=== PATIENT | female | born 1975 | race African-American/Black ===

== ENCOUNTER 2017-02-06 03:40 | Emergency (ER) | payer MEDICAID ==
[~2017-02-06] VITALS: Ht 149.9 cm; Wt 54.4 kg
[~2017-02-06 03:40] MED LIST: AMBIEN5 M1 PO; AMBIEN5 MG PO; ARIMIDEX1 MG PO; CATAPRES0.1 MG PO; CATAPRES0.2 MG PO; CLOMID PO; FARESTON60 MG PO; FLEXERIL10 MG PO; IMITREX25 MG PO; LEVAQUIN500 MG PO; LIDODERM 5%1 EA TP; NEURONTIN400 MG PO; NORCO 5/325 MG1 TAB PO; PERCOCET 5/3251 TAB PO; PREMARIN0.625 MG PO; SOMA350 MG PO; TAMOXIFEN CITRA20 MG PO; ULTRAM50 MG PO; VICODIN 300 MG-1 TAB PO; VICODIN 5/500 M1 TAB PO; XANAX1 MG PO; ZOCOR40 MG PO; [UNRECOGNIZED DRUG - REMARK]; [UNRECOGNIZED DRUG - REMARK]
[2017-02-06 03:49] VITALS: BP 121/81
--- NOTE | 2017-02-06 03:52 | NUR ---
Dr. Li evaluating patient at triage
--- NOTE | 2017-02-06 03:57 | NUR ---
PT TAKEN TO BED 1
[2017-02-06] MEDS ORDERED: NACL 0.9% 1,000 ML IV SCH (04:00)
--- NOTE | 2017-02-06 04:06 | NUR ---
Dr. Li evaluating patient at bedside.
[2017-02-06] MEDS ORDERED: ALBUTEROL 0.083% 2.5 MG/3 ML NEBU INH ONE (04:20)
[2017-02-06] MEDS ORDERED: IPRATROPIUM 0.02% 0.5 MG/2.5 ML NEBU INH ONE (04:20)
--- NOTE | 2017-02-06 04:20 | NUR ---
PT OXYGEN SATURATION AT 100% ON R.A AT THIS TIME
[2017-02-06] MEDS ORDERED: KETOROLAC 30 MG/ML VIAL IVP ONE (04:35)
--- NOTE | 2017-02-06 04:39 | NUR ---
PATIENT PRESENTS TO ED WITH ABD PAIN AND SOB . PT STATES SHE HAS HAD N/V/D S/P PROLIA X2DAYS AGO ; SKIN IS PINK/WARM/DRY; AAOX4 WITH EVEN AND STEADY GAIT; LUNGS CLEAR BL; HR EVEN AND REGULAR; PT DENIES ANY FEVER, CP, OR COUGH AT THIS TIME; PATIENT STATES PAIN OF 10/10 AT THIS TIME; VSS; PATIENT POSITIONED FOR COMFORT; HOB ELEVATED; BEDRAILS UP X2; BED DOWN. ER MD MADE AWARE OF PT STATUS. AT BEDSIDE
[2017-02-06] MEDS ORDERED: HYDROmorphone 1 MG/ML AMP IVP ONE (05:30)
[2017-02-06] MEDS ORDERED: ONDANSETRON 4 MG/2 ML VIAL IVP ONE (05:30)
[2017-02-06] MEDS ORDERED: HYDROmorphone 1 MG/ML AMP ONE (05:31)
[2017-02-06] MEDS ORDERED: ONDANSETRON 4 MG/2 ML VIAL ONE (05:32)
--- NOTE | 2017-02-06 05:35 | NUR ---
PT REFUSED HHN TX , AFTER I STARTED THE HHN TX , PT TOOK THE MASK OFF AFTER 2 MIN , SHE SAID THAT THIS IS STUPID, DOES NOT NEEDED.
--- NOTE | 2017-02-06 05:56 | NUR ---
Patient discharged with v/s stable. Written and verbal after care instructions given and explained. Patient alert, oriented and verbalized understanding of instructions. Ambulatory with steady gait. All questions addressed prior to discharge. ID band removed. Patient advised to follow up with PMD. Rx of TRAMADOL AND ALBUTEROL given. Patient educated on indication of medication including possible reaction and side effects. Opportunity to ask questions provided and answered.
[2017-02-06 05:57] VITALS: BP 121/81
== END 2017-02-06 05:56 | disposition home or self-care (01) ==
LOC: MED 03:40
DX: M79.1 Myalgia (principal); G89.4 Chronic pain syndrome; R06.02 Shortness of breath; I10 Essential (primary) hypertension; Z80.3 Family history of malignant neoplasm of breast; Z88.1 Allergy status to other antibiotic agents
CPT/HCPCS: 36415; 80053; 81001; 81025; 82150; 83690; 85025; 87086; 94640; 96361; 96374; 96375; 99284; J1170; J1885; J2405; J7030; J7613; J7644

== ENCOUNTER 2020-02-08 22:54 | Inpatient (IN) | payer BC, MEDICAID ==
[~2020-02-08] VITALS: Ht 149.9 cm; Wt 56.7 kg
[~2020-02-08 22:54] MED LIST changes: -AMBIEN5 M1 PO; -AMBIEN5 MG PO; +ANAS1TAB56 PO; -ARIMIDEX1 MG PO; -CATAPRES0.1 MG PO; -CATAPRES0.2 MG PO; -CLOMID PO; -FARESTON60 MG PO; -FLEXERIL10 MG PO; +GABA400C PO; -IMITREX25 MG PO; -LEVAQUIN500 MG PO; +LID5T TP; -LIDODERM 5%1 EA TP; -NEURONTIN400 MG PO; -NORCO 5/325 MG1 TAB PO; -PERCOCET 5/3251 TAB PO; -PREMARIN0.625 MG PO; -SOMA350 MG PO; +TAMO20TA3 PO; -TAMOXIFEN CITRA20 MG PO; -ULTRAM50 MG PO; -VICODIN 300 MG-1 TAB PO; -VICODIN 5/500 M1 TAB PO; -XANAX1 MG PO; -ZOCOR40 MG PO; -[UNRECOGNIZED DRUG - REMARK]
[2020-02-08 22:55] VITALS: BP 125/78
[2020-02-09] MEDS ORDERED: HYDROcodone/APAP 5/325 MG 1 TAB TAB PO ONE ×2 (01:45→02:40)
[2020-02-09] MEDS ORDERED: CYCLOBENZAPRINE 10 MG TAB PO ONE (05:00)
[2020-02-09] MEDS ORDERED: HYDROmorphone 2 MG TAB PO STA (05:00)
[2020-02-09] MEDS ORDERED: ONDANSETRON 4 MG/2 ML VIAL IM/IVP PRN (06:30)
[2020-02-09] MEDS ORDERED: DOCUSATE SODIUM 100 MG GELCAP PO PRN (06:30)
[2020-02-09] MEDS ORDERED: HYDROcodone/APAP 5/325 MG 1 TAB TAB PO PRN (06:30)
[2020-02-09] MEDS ORDERED: ACETAMINOPHEN 325 MG TAB PO PRN (06:30)
[2020-02-09] MEDS ORDERED: LORazepam 2 MG/ML VIAL IM/IVP PRN (06:30)
[2020-02-09] MEDS ORDERED: CYCL10TA33 PO (06:56)
[2020-02-09 06:59] LABS: BASOPHILS % (AUTO) 0.6 % (0.0-2.0); EOSINOPHILS % (AUTO) 0.4 % (0.0-4.0); HEMATOCRIT 37.2 % (36-48); HEMOGLOBIN 11.9 g/dL (12.0-16.0); LYMPHOCYTES # (AUTO) 2.7 K/uL (2.5-16.5); LYMPHOCYTES % (AUTO) 51.3 % (20.5-51.1); MEAN CORPUSCULAR HEMOGLOBIN 27 pg (27-31); MEAN CORPUSCULAR HGB CONC 32 g/dL (33-37); MEAN CORPUSCULAR VOLUME 85.2 fL (80-94); MONOCYTES # (AUTO) 0.3 K/uL (0.8-1.0); MONOCYTES % (AUTO) 6.6 % (1.7-9.3); NEUTROPHILS # (AUTO) 2.2 K/uL (1.8-7.7); NEUTROPHILS % (AUTO) 41.1 % (42.2-75.2); PLATELET COUNT (AUTO) 209 K/uL (140-450); RED BLOOD CELL COUNT(AUTO) 4.36 MIL/uL (4.20-5.40); RED CELL DISTRIBUTION WIDTH 15.1 % (11.6-13.7); WHITE BLOOD COUNT (AUTO) 5.2 K/uL (4.8-10.8)
[2020-02-09 07:05] VITALS: BP 132/76
[2020-02-09 07:16] LABS: ALBUMIN 3.7 g/dL (3.4-5.0); ANION GAP 10.2 (8-16); CARBON DIOXIDE 29.3 mmol/L (21-32); CREATININE 0.9 mg/dL (0.6-1.3); POTASSIUM 3.5 mmol/L (3.5-5.1); TOTAL BILIRUBIN 0.4 mg/dL (0.0-1.0)
[2020-02-09 07:27] LABS: MAGNESIUM 2.3 mg/dL (1.8-2.4); PHOSPHORUS 3.5 mg/dL (2.5-4.9); THYROID STIMULATING HORMONE 3.38 uIU/mL (0.34-3.74)
[2020-02-09] MEDS: NACL 0.9% 1,000 ML IV SCH (08:41)
[2020-02-09] MEDS: MORPHINE SULFATE 2 MG/ML SYR IVP PRN ×3 (12:05→21:58)
[2020-02-09 16:00] VITALS: BP 110/64
[2020-02-09] MEDS ORDERED: CYCLOBENZAPRINE 10 MG TAB PO PRN ×2 (17:55→18:15)
[2020-02-09 20:00] VITALS: BP 110/60
[2020-02-09] MEDS ORDERED: TAMOXIFEN 10 MG TAB PO SCH (21:00)
[2020-02-10] VITALS: BP 105/60
[2020-02-10 02:01] LABS: APPEARANCE,URINE CLOUDY (CLEAR); BILIRUBIN,URINE NEGATIVE (NEGATIVE); BLOOD, URINE NEGATIVE (NEGATIVE); COLOR,URINE YELLOW (YELLOW); LEUKOCYTE ESTERASE ,URINE TRACE (NEGATIVE); NITRITE, URINE POSITIVE (NEGATIVE); UGLUCOSE NEGATIVE (NEGATIVE)
[2020-02-10 02:20] LABS: BARBITURATE, URINE NEGATIVE ng/ml (NEG <=200); BENZODIAZEPINE, URINE NEGATIVE ng/mL (NEG <=200)
[2020-02-10 02:21] LABS: CANNABINOID, URINE NEGATIVE ng/mL (NEG <=50); COCAINE, URINE NEGATIVE ng/mL (NEG <=300); OPIATE, URINE NEGATIVE ng/mL (NEG <=2000); PHENCYCLIDINE SCREEN,URINE NEGATIVE ng/mL (NEG <=25)
[2020-02-10] MEDS: NACL 0.9% 1,000 ML IV SCH ×2 (02:30→16:27)
[2020-02-10 03:10] LABS: RBC,URINE 0-5 /HPF (0-5)
[2020-02-10 04:00] VITALS: BP 111/61
[2020-02-10] MEDS ORDERED: cefTRIAXone 1,000 MG VIAL ONE (05:04)
[2020-02-10 07:05] LABS: BASOPHILS % (AUTO) 0.5 % (0.0-2.0); EOSINOPHILS % (AUTO) 0.5 % (0.0-4.0); HEMATOCRIT 37.8 % (36-48); HEMOGLOBIN 11.9 g/dL (12.0-16.0); LYMPHOCYTES # (AUTO) 2.5 K/uL (2.5-16.5); LYMPHOCYTES % (AUTO) 55.4 % (20.5-51.1); MEAN CORPUSCULAR HEMOGLOBIN 27 pg (27-31); MEAN CORPUSCULAR HGB CONC 31 g/dL (33-37); MEAN CORPUSCULAR VOLUME 86.2 fL (80-94); MONOCYTES # (AUTO) 0.3 K/uL (0.8-1.0); MONOCYTES % (AUTO) 6.3 % (1.7-9.3); NEUTROPHILS # (AUTO) 1.7 K/uL (1.8-7.7); NEUTROPHILS % (AUTO) 37.3 % (42.2-75.2); PLATELET COUNT (AUTO) 204 K/uL (140-450); RED BLOOD CELL COUNT(AUTO) 4.38 MIL/uL (4.20-5.40); WHITE BLOOD COUNT (AUTO) 4.6 K/uL (4.8-10.8)
[2020-02-10 07:22] LABS: ANION GAP 11.4 (8-16); CARBON DIOXIDE 28.7 mmol/L (21-32); CREATININE 0.8 mg/dL (0.6-1.3); POTASSIUM 4.1 mmol/L (3.5-5.1)
[2020-02-10 07:40] LABS: CHOL/HDL RATIO 3.9 (1-4.5); MAGNESIUM 2.1 mg/dL (1.8-2.4); PHOSPHORUS 3.7 mg/dL (2.5-4.9)
[2020-02-10 08:00] VITALS: BP 114/74
[2020-02-10] MEDS: LACTOBACILLUS RHAMNOSUS GG 1 EACH CAP PO SCH (09:00)
[2020-02-10] MEDS ORDERED: TAMOXIFEN 10 MG TAB PO SCH (09:00)
[2020-02-10] MEDS: MORPHINE SULFATE 2 MG/ML SYR IVP PRN ×2 (10:45→16:27)
[2020-02-10] MEDS ORDERED: KETOROLAC 10 MG TAB PO SCH (13:00)
[2020-02-10] MEDS: KETOROLAC 15 MG/ML VIAL IVP SCH ×2 (13:36→20:17)
[2020-02-10 16:00] VITALS: BP 110/78
[2020-02-11] VITALS: BP 112/73
[2020-02-11] MEDS: MORPHINE SULFATE 2 MG/ML SYR IVP PRN ×2 (02:01→09:21)
[2020-02-11] MEDS: KETOROLAC 15 MG/ML VIAL IVP SCH ×3 (04:12→21:12)
[2020-02-11 06:49] LABS: BASOPHILS # (AUTO) 0.2 K/uL (0.00-0.22); EOSINOPHILS % (AUTO) 0.7 % (0.0-4.0); HEMATOCRIT 35.6 % (36-48); HEMOGLOBIN 11.3 g/dL (12.0-16.0); LYMPHOCYTES % (AUTO) 46.5 % (20.5-51.1); MEAN CORPUSCULAR HEMOGLOBIN 27 pg (27-31); MEAN CORPUSCULAR HGB CONC 32 g/dL (33-37); MEAN CORPUSCULAR VOLUME 85.4 fL (80-94); MONOCYTES # (AUTO) 0.2 K/uL (0.8-1.0); MONOCYTES % (AUTO) 5.7 % (1.7-9.3); NEUTROPHILS # (AUTO) 1.8 K/uL (1.8-7.7); NEUTROPHILS % (AUTO) 41.9 % (42.2-75.2); PLATELET COUNT (AUTO) 205 K/uL (140-450); RED BLOOD CELL COUNT(AUTO) 4.17 MIL/uL (4.20-5.40); RED CELL DISTRIBUTION WIDTH 14.9 % (11.6-13.7); WHITE BLOOD COUNT (AUTO) 4.4 K/uL (4.8-10.8)
[2020-02-11 06:58] LABS: BASOPHILS % (AUTO) 5.2 % (0.0-2.0)
[2020-02-11 07:00] LABS: CARBON DIOXIDE 27.8 mmol/L (21-32); CREATININE 0.9 mg/dL (0.6-1.3); POTASSIUM 3.8 mmol/L (3.5-5.1)
[2020-02-11 07:05] LABS: MAGNESIUM 1.9 mg/dL (1.8-2.4); PHOSPHORUS 3.9 mg/dL (2.5-4.9)
[2020-02-11] MEDS ORDERED: TRAM50TA1 PO (07:38)
[2020-02-11] MEDS: NACL 0.9% 1,000 ML IV SCH (07:52)
[2020-02-11 08:00] VITALS: BP 110/68
[2020-02-11] MEDS: LACTOBACILLUS RHAMNOSUS GG 1 EACH CAP PO SCH (09:20)
[2020-02-11 16:00] VITALS: BP 118/73
[2020-02-12] VITALS: BP 115/60
[2020-02-12] MEDS: NACL 0.9% 1,000 ML IV SCH (01:09)
[2020-02-12 03:20] VITALS: BP 111/71
== END 2020-02-12 03:10 | disposition home or self-care (01) | DRG 558 ==
LOC: MED 22:54 → MTU 02-09 06:33
PROVIDERS: ADMIT General Practice; ATTEND General Practice
DX: M71.22 Synovial cyst of popliteal space [Baker], left knee (principal); N39.0 Urinary tract infection, site not specified; G62.9 Polyneuropathy, unspecified; M71.21 Synovial cyst of popliteal space [Baker], right knee; M85.861 Other specified disorders of bone density and structure, right lower leg; N32.81 Overactive bladder; Z88.8 Allergy status to other drugs, medicaments and biological substances; Z85.3 Personal history of malignant neoplasm of breast; Z90.710 Acquired absence of both cervix and uterus; Z80.3 Family history of malignant neoplasm of breast; Z23 Encounter for immunization
CPT/HCPCS: 29505; 36415; 73502; 73562; 80048; 80053; 80305; 81001; 83036; 83690; 83735; 83880; 84100; 84443; 84484; 85025; 85610; 85730; 87081; 87086; 87186; 93971; 97112; 97116; 97161-GP; 97530; 99285; J0696; J1644; J1885; J2270; J7030; J7060; Q0092

== ENCOUNTER 2020-06-19 10:02 | Emergency (ER) | payer BC, MEDICAID ==
[~2020-06-19] VITALS: Ht 149.9 cm; Wt 56.7 kg
[~2020-06-19 10:02] MED LIST changes: -ANAS1TAB56 PO; +CYCL10TA33 PO; -GABA400C PO; -LID5T TP; +TRAM50TA1 PO
[2020-06-19 10:10] VITALS: BP 118/70
--- NOTE | 2020-06-19 10:25 | NUR ---
PT AMBULATED TO BED 1, STEADY GAIT.
--- NOTE | 2020-06-19 10:43 | NUR ---
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 PT ALSO C/O ROCHA CYST PAIN ON RT KNEE FOR 3 WEEKS THAT WAS DIAGNOSED BY U/S IN OUR ER 3 WEEKS AGO. PT WAS TESTED FOR COVID INFECTION 2 WEEKS AGO WITH NEGATIVE RESULT. OTHERWISE, SHE DENIES FEVER, CHILLS, SORE THROAT, N/V/D. PMH: MASTECTOMY LEFT BREAST, FULLY HYSTERECTOMY IN 2014 MEDS: Tamoxifen
--- NOTE | 2020-06-19 10:50 | NUR ---
ERMD AT BEDSIDE.
[2020-06-19] MEDS ORDERED: KETOROLAC 60 MG/2 ML VIAL IM ONE (10:55)
--- NOTE | 2020-06-19 11:10 | NUR ---
Patient discharged with v/s stable. Written and verbal after care instructions given and explained. Patient alert, oriented and verbalized understanding of instructions. Ambulatory with steady gait. All questions addressed prior to discharge. ID band removed. Patient advised to follow up with PMD. Rx of PREDNISONE AND MOTRIN given. Patient educated on indication of medication including possible reaction and side effects. Opportunity to ask questions provided and answered.
[2020-06-19 11:11] VITALS: BP 118/70
== END 2020-06-19 11:10 | disposition home or self-care (01) ==
LOC: MED 10:02
DX: M71.21 Synovial cyst of popliteal space [Baker], right knee (principal); R07.9 Chest pain, unspecified; R05 Cough; Z88.8 Allergy status to other drugs, medicaments and biological substances; Z85.3 Personal history of malignant neoplasm of breast
CPT/HCPCS: 93005; 96372; 99283; J1885

== ENCOUNTER 2020-10-03 09:20 | Emergency (ER) | payer BC, MEDICAID ==
[~2020-10-03] VITALS: Ht 149.9 cm; Wt 59.0 kg
[2020-10-03 09:30] VITALS: BP 109/72
--- NOTE | 2020-10-03 09:47 | NUR ---
PT AMB TO BED 12 Addendum: 10/03/20 at 0947 by [email or web address] HANDED ON URINE CUP.
--- NOTE | 2020-10-03 09:50 | NUR ---
PT C/O NAUSEA, PAINFUL URINATION, R LOWER BACK PAIN RADIATING TO RIGHT LOWER ABDOMEN X 2 DAYS. PT WAS SEEN BY A MAREK FOY WITH 2CM KIDNEY STONE, AND PRESCRIPED WITH KEFLEX FOR 7 DAYS AND PT HAS BEEN ON FOR 3 DAYS. PT HAD COVID TESTED 3 WEEKS AGO IN [facility] WITH NEGATIVE RESULT. DENIES FEVER OR CHILLS. RT CVAT POSITIVE.
[2020-10-03] MEDS ORDERED: KETOROLAC 30 MG/ML VIAL IM/IVP ONE (10:05)
[2020-10-03] MEDS ORDERED: MORPHINE SULFATE 4 MG/ML SYR IVP ONE (10:05)
[2020-10-03] MEDS ORDERED: ONDANSETRON 4 MG/2 ML VIAL IVP ONE (10:05)
[2020-10-03] MEDS ORDERED: NACL 0.9% 1,000 ML IV ONE (10:05)
--- NOTE | 2020-10-03 10:14 | NUR ---
US tech at bedside for exam.
[2020-10-03 10:26] LABS: BASOPHILS % (AUTO) 0.9 % (0.0-2.0); EOSINOPHILS % (AUTO) 0.9 % (0.0-4.0); HEMATOCRIT 38.3 % (36-48); HEMOGLOBIN 12.3 g/dL (12.0-16.0); LYMPHOCYTES # (AUTO) 1.6 K/uL (2.5-16.5); LYMPHOCYTES % (AUTO) 37.9 % (20.5-51.1); MEAN CORPUSCULAR HEMOGLOBIN 27 pg (27-31); MEAN CORPUSCULAR HGB CONC 32 g/dL (33-37); MEAN CORPUSCULAR VOLUME 85.5 fL (80-94); MONOCYTES # (AUTO) 0.3 K/uL (0.8-1.0); MONOCYTES % (AUTO) 7.8 % (1.7-9.3); NEUTROPHILS # (AUTO) 2.3 K/uL (1.8-7.7); NEUTROPHILS % (AUTO) 52.5 % (42.2-75.2); PLATELET COUNT (AUTO) 218 K/uL (140-450); RED BLOOD CELL COUNT(AUTO) 4.49 MIL/uL (4.20-5.40); RED CELL DISTRIBUTION WIDTH 14.9 % (11.6-13.7); WHITE BLOOD COUNT (AUTO) 4.3 K/uL (4.8-10.8)
[2020-10-03 10:39] LABS: ANION GAP 8.1 (8-16); CARBON DIOXIDE 28.3 mmol/L (21-32); CREATININE 0.9 mg/dL (0.6-1.3); POTASSIUM 4.4 mmol/L (3.5-5.1)
[2020-10-03 10:44] LABS: ALBUMIN 3.9 g/dL (3.4-5.0); TOTAL BILIRUBIN 0.3 mg/dL (0.0-1.0)
--- NOTE | 2020-10-03 10:50 | NUR ---
PT IS BACK FROM XRAY VIA WC.
[2020-10-03 11:15] LABS: APPEARANCE,URINE CLEAR (CLEAR); BILIRUBIN,URINE NEGATIVE (NEGATIVE); BLOOD, URINE NEGATIVE (NEGATIVE); COLOR,URINE YELLOW (YELLOW); LEUKOCYTE ESTERASE ,URINE NEGATIVE (NEGATIVE); NITRITE, URINE NEGATIVE (NEGATIVE); UGLUCOSE NEGATIVE (NEGATIVE)
[2020-10-03] MEDS: MORPHINE SULFATE 4 MG/ML SYR IVP ONE ×2 (12:43→12:52)
[2020-10-03 12:52] VITALS: BP 112/72
--- NOTE | 2020-10-03 12:52 | NUR ---
Patient discharged with v/s stable. Written and verbal after care instructions given and explained. Patient alert, oriented and verbalized understanding of instructions. Ambulatory with steady gait. All questions addressed prior to discharge. ID band removed. Patient advised to follow up with PMD. Rx of Miralax, [place], Flomax, and Zofran given. Patient educated on indication of medication including possible reaction and side effects. Opportunity to ask questions provided and answered.
== END 2020-10-03 12:52 | disposition home or self-care (01) ==
LOC: MED 09:20
DX: N20.0 Calculus of kidney (principal); K59.00 Constipation, unspecified; Z79.899 Other long term (current) drug therapy; Z88.8 Allergy status to other drugs, medicaments and biological substances; Z85.3 Personal history of malignant neoplasm of breast; Z90.710 Acquired absence of both cervix and uterus
CPT/HCPCS: 36415; 74021; 76770; 80053; 81003; 81025; 83690; 85025; 87086; 96361; 96374; 96375; 96376; 99284; J1885; J2270; J2405; Q0092; J7030

== ENCOUNTER 2021-04-20 02:55 | Emergency (ER) | payer BC, MEDICAID ==
[~2021-04-20] VITALS: Ht 149.9 cm; Wt 63.5 kg
[2021-04-20 02:58] VITALS: BP 127/83
--- NOTE | 2021-04-20 02:58 | NUR ---
TO BED AMBULATORY
--- NOTE | 2021-04-20 03:11 | NUR ---
PATIENT BIB SELF FOR C/O RASH TO LEFT BUTTOCK X 12 DAYS. A & O X4. PATIENT REPORTS "I THINK I HAVE SHINGLES." PATIENT REPORTS PAIN 8/10 THAT RADIATES TO LLQ. PATIENT DENIES N/V/D, FEVER, CHILLS. PATIENT DENIES OTC MEDICATIONS FOR TREATMENT. UPON VISUAL ASSESSMENT, RASH NOTED TO LEFT BUTTOCK WITH RAISED AND RED APPEARANCE, MILD SWELLING. NO DISCHARGE NOTED. NO BLISTERING NOTED. SEE COMPLETE ASSESSMENT FOR FURTHER DETAILS. MED HX: LEFT BREAST CANCER (DX 2012, REMISSION) ALLERGIES: FLAGYL
--- NOTE | 2021-04-20 03:19 | NUR ---
ERMD AT BEDSIDE.
[2021-04-20] MEDS ORDERED: VALA1TAB42 PO (03:38)
[2021-04-20] MEDS ORDERED: ACET-9527 PO (03:38)
[2021-04-20] MEDS ORDERED: PRED10TA5 PO (03:38)
--- NOTE | 2021-04-20 03:45 | NUR ---
INSTRUCTED PATIENT REGARDING D/C INSTRUCTIONS. PATIENT VERBALIZED "SO WHAT ARE YOU GOING TO DO FOR ME BEFORE I LEAVE. I DONT WANT TO LEAVE HERE THE SAME WAY I CAME IN." EXPLAINED TO PATIENT THE MEDICATIONS THAT WERE RX TO HER, INCLUDING THE PAIN MEDICATION RX THAT CAN BE FILLED AT A PHARMACY OF HER CHOICE. PATIENT STATED "SO YOU GUYS ARENT GOING TO DO ANYTHING FOR ME?" ERMD MADE AWARE, OFFERED PAIN MEDICATION NORCO, TYLENOL AND MOTRIN. PATIENT REFUSED PAIN MEDICATION STATING SHE WAS JUST GOING TO LEAVE AND CALL HER MOM TO COMPLAIN REGARDING VISIT.
--- NOTE | 2021-04-20 03:46 | NUR ---
Patient discharged with v/s stable. Written and verbal after care instructions given and explained. Patient alert, oriented and verbalized understanding of instructions. Ambulatory with steady gait. All questions addressed prior to discharge. Patient advised to follow up with PMD. Rx of NORCO, DELTASONE AND VALACYCLOVIR given. Patient educated on indication of medication including possible reaction and side effects. Opportunity to ask questions provided and answered. PATIENT REFUSED TO LET RN REMOVE ID BAND PRIOR TO DISCHARGE AND WALKED AWAY URGENTLY.
== END 2021-04-20 03:46 | disposition home or self-care (01) ==
LOC: MED 02:55
DX: B02.9 Zoster without complications (principal); Z79.899 Other long term (current) drug therapy; Z88.8 Allergy status to other drugs, medicaments and biological substances; Z85.3 Personal history of malignant neoplasm of breast
CPT/HCPCS: 99283

== ENCOUNTER 2022-01-12 19:54 | Emergency (ER) | payer BC, OTHER ==
[~2022-01-12] VITALS: Ht 149.9 cm; Wt 68.1 kg
[~2022-01-12 19:54] MED LIST changes: +ACET-9527 PO; +PRED10TA5 PO; +VALA1TAB42 PO
[2022-01-12 20:04] VITALS: BP 117/51
[2022-01-12] MEDS ORDERED: IBUPROFEN 600 MG TAB PO ONE (21:30)
[2022-01-12] MEDS ORDERED: ONDANSETRON 4 MG ODT PO ONE (21:30)
[2022-01-12] MEDS ORDERED: FAMOTIDINE 20 MG TAB PO ONE (21:30)
[2022-01-12 21:54] LABS: BASOPHILS % (AUTO) 0.5 % (0.0-2.0); EOSINOPHILS % (AUTO) 0.5 % (0.0-4.0); HEMATOCRIT 39.2 % (36-48); HEMOGLOBIN 12.7 g/dL (12.0-16.0); LYMPHOCYTES # (AUTO) 2.8 K/uL (2.5-16.5); LYMPHOCYTES % (AUTO) 37.8 % (20.5-51.1); MEAN CORPUSCULAR HEMOGLOBIN 27 pg (27-31); MEAN CORPUSCULAR HGB CONC 32 g/dL (33-37); MEAN CORPUSCULAR VOLUME 84.1 fL (80-94); MONOCYTES # (AUTO) 0.4 K/uL (0.8-1.0); NEUTROPHILS # (AUTO) 4.2 K/uL (1.8-7.7); NEUTROPHILS % (AUTO) 56.2 % (42.2-75.2); PLATELET COUNT (AUTO) 238 K/uL (140-450); RED BLOOD CELL COUNT(AUTO) 4.66 MIL/uL (4.20-5.40); RED CELL DISTRIBUTION WIDTH 14.7 % (11.6-13.7); WHITE BLOOD COUNT (AUTO) 7.4 K/uL (4.8-10.8)
[2022-01-12 22:23] LABS: ANION GAP 12.3 (8-16); CARBON DIOXIDE 30.1 mmol/L (21-32); POTASSIUM 4.4 mmol/L (3.5-5.1); TOTAL BILIRUBIN 0.3 mg/dL (0.0-1.0)
--- NOTE | 2022-01-12 23:10 | NUR ---
AMBULATED TO ER BED 5
--- NOTE | 2022-01-12 23:45 | NUR ---
Norma abernathy in [facility] - 01/12/22 at 0573 by [email or web address]
--- NOTE | 2022-01-12 23:53 | NUR ---
TAKEN TO CT
[2022-01-13 00:26] LABS: ALBUMIN 4.3 g/dL (3.4-5.0)
[2022-01-13] MEDS ORDERED: ACETAMINOPHEN EXTRA STRENGTH 500 MG TAB PO ONE (01:15)
[2022-01-13] MEDS ORDERED: ACETAMINOPHEN EXTRA STRENGTH 500 MG TAB ONE (02:21)
[2022-01-13] MEDS ORDERED: NACL 0.9% 500 ML IV ONE (02:30)
[2022-01-13] MEDS ORDERED: MORPHINE SULFATE 4 MG/ML SYR IVP ONE (02:30)
[2022-01-13] MEDS ORDERED: ACET-5629 PO (02:32)
--- NOTE | 2022-01-13 03:23 | NUR ---
PATIENT CLEARED FOR DISCHARGE AT THIS TIME. ADVISED TO FOLLOW UP WITH PCP AND RETURN IF CONDITION WORSENS. NO OTHER COMPLAINTS OR CONECRNS AT THIS TIME FOLLOWING [facility] TEACHING.
[2022-01-13 03:26] VITALS: BP 129/56
== END 2022-01-13 03:22 | disposition home or self-care (01) ==
LOC: MED 19:54
DX: R07.2 Precordial pain (principal); R06.02 Shortness of breath; Z85.3 Personal history of malignant neoplasm of breast; Z79.899 Other long term (current) drug therapy; Z88.8 Allergy status to other drugs, medicaments and biological substances
CPT/HCPCS: 36415; 71045; 71275; 80053; 85025; 85379; 93005; 96361; 96374; 99285; J2270; Q0162; Q9967; J7030

== ENCOUNTER 2022-06-20 22:35 | Emergency (ER) | payer BC, OTHER ==
[~2022-06-20] VITALS: Ht 149.9 cm; Wt 54.4 kg
[~2022-06-20 22:35] MED LIST changes: +ACET-5629 PO
[2022-06-20 22:51] VITALS: BP 118/79
--- NOTE | 2022-06-20 22:54 | NUR ---
TO LOBBY A/W BED AMBULATORY
--- NOTE | 2022-06-20 23:30 | NUR ---
SEEN AND EXAMINED BY BRENNA
[2022-06-20] MEDS ORDERED: BPM/118S31 PO (23:47)
--- NOTE | 2022-06-21 00:49 | NUR ---
PT STATED "I JUST GONNA GO TO ANOTHER HOSPITAL THAT HAS STAFF". PT LEFT FACILITY AT THIS TIME. DR. OROURKE MADE AWARE.
== END 2022-06-21 00:49 | disposition left against medical advice (07) ==
LOC: MED 22:35
DX: R07.89 Other chest pain (principal); R05.9 Cough, unspecified; Z88.1 Allergy status to other antibiotic agents; Z85.3 Personal history of malignant neoplasm of breast; Z98.890 Other specified postprocedural states
CPT/HCPCS: 71045; 81025; 93005; 99283

== ENCOUNTER 2023-01-24 14:33 | Emergency (ER) | payer BC, OTHER ==
[~2023-01-24] VITALS: Ht 149.9 cm; Wt 66.2 kg
[~2023-01-24 14:33] MED LIST changes: +BPM/118S31 PO; +TRAM-748 PO; -TRAM50TA1 PO
[2023-01-24 14:42] VITALS: BP 121/78
[2023-01-24] MEDS ORDERED: NACL 0.9% 1,000 ML IV ONE ×2 (15:40→18:55)
[2023-01-24 16:14] LABS: BASOPHILS % (AUTO) 0.2 % (0.0-2.0); EOSINOPHILS % (AUTO) 0.1 % (0.0-4.0); HEMATOCRIT 41.4 % (36-48); HEMOGLOBIN 13.3 g/dL (12.0-16.0); LYMPHOCYTES # (AUTO) 1.3 K/uL (2.5-16.5); MEAN CORPUSCULAR HEMOGLOBIN 27 pg (27-31); MEAN CORPUSCULAR HGB CONC 32 g/dL (33-37); MONOCYTES # (AUTO) 0.2 K/uL (0.8-1.0); MONOCYTES % (AUTO) 4.9 % (1.7-9.3); NEUTROPHILS # (AUTO) 3.1 K/uL (1.8-7.7); NEUTROPHILS % (AUTO) 66.8 % (42.2-75.2); PLATELET COUNT (AUTO) 211 K/uL (140-450); RED BLOOD CELL COUNT(AUTO) 4.93 MIL/uL (4.20-5.40); RED CELL DISTRIBUTION WIDTH 15.7 % (11.6-13.7); WHITE BLOOD COUNT (AUTO) 4.7 K/uL (4.8-10.8)
[2023-01-24 16:51] LABS: ALBUMIN 4.5 g/dL (3.4-5.0); ANION GAP 12.9 (8-16); CARBON DIOXIDE 28.4 mmol/L (21-32); POTASSIUM 3.3 mmol/L (3.5-5.1); TOTAL BILIRUBIN 0.3 mg/dL (0.0-1.0)
[2023-01-24] MEDS ORDERED: ONDANSETRON 4 MG/2 ML VIAL IVP ONE (17:40)
[2023-01-24] MEDS ORDERED: MECLIZINE 25 MG TAB PO ONE (17:40)
--- NOTE | 2023-01-24 19:26 | NUR ---
Report given to JAVIER Rae for transfer of care.
[2023-01-24] MEDS ORDERED: ONDA-188 PO (21:07)
[2023-01-24] MEDS ORDERED: MECL-303 PO (21:07)
[2023-01-24 21:40] VITALS: BP 124/78
--- NOTE | 2023-01-24 21:40 | NUR ---
Patient discharged with v/s stable. Written and verbal after care instructions given and explained. Patient alert, oriented and verbalized understanding of instructions. Ambulatory with steady gait. All questions addressed prior to discharge. ID band removed. Patient advised to follow up with PMD. Rx of MECLIZINE, ZOFRAN given. Patient educated on indication of medication including possible reaction and side effects. Opportunity to ask questions provided and answered.
--- NOTE | 2023-01-28 08:00 | NUR ---
CONFIRMED WITH NURSE, NS INFUSION END TIME IS 201501/24/23
== END 2023-01-24 21:10 | disposition home or self-care (01) ==
LOC: MED 14:33
DX: R51.9 Headache, unspecified (principal); R42 Dizziness and giddiness; E86.0 Dehydration; Z98.890 Other specified postprocedural states; Z85.3 Personal history of malignant neoplasm of breast
CPT/HCPCS: 36415; 70450; 71045; 80053; 83880; 84484; 85025; 93005; 96361; 96374; 99285; J2405; J7030; J8597

== ENCOUNTER 2023-09-23 13:51 | Inpatient (IN) | payer OTHER ==
[~2023-09-23] VITALS: Ht 149.9 cm; Wt 65.8 kg
[~2023-09-23 13:51] MED LIST changes: -BPM/118S31 PO; +BROM118S70 PO; +MECL-303 PO; +ONDA-188 PO
[2023-09-23 14:22] VITALS: BP 128/55; PULSE 85; RESP 18; TEMP 97.3; O2SAT 98
[2023-09-23 14:58] LABS: BASOPHILS % (AUTO) 0.4 % (0.0-2.0); EOSINOPHILS % (AUTO) 0.4 % (0.0-4.0); HEMATOCRIT 37.9 % (36-48); HEMOGLOBIN 12.1 g/dL (12.0-16.0); LYMPHOCYTES # (AUTO) 2.2 K/uL (2.5-16.5); LYMPHOCYTES % (AUTO) 34.4 % (20.5-51.1); MEAN CORPUSCULAR HEMOGLOBIN 27 pg (27-31); MEAN CORPUSCULAR HGB CONC 32 g/dL (33-37); MEAN CORPUSCULAR VOLUME 83.2 fL (80-94); MONOCYTES # (AUTO) 0.3 K/uL (0.8-1.0); NEUTROPHILS # (AUTO) 3.7 K/uL (1.8-7.7); NEUTROPHILS % (AUTO) 59.8 % (42.2-75.2); PLATELET COUNT (AUTO) 228 K/uL (140-450); RED BLOOD CELL COUNT(AUTO) 4.56 MIL/uL (4.20-5.40); RED CELL DISTRIBUTION WIDTH 14.9 % (11.6-13.7); WHITE BLOOD COUNT (AUTO) 6.3 K/uL (4.8-10.8)
[2023-09-23 15:09] LABS: INR 0.94 (0.8-1.2); PARTIAL THROMBOPLASTIN TIME 28.2 secs (22-35.6); PROTHROMBIN TIME 9.9 secs (10.8-13.4)
[2023-09-23 15:24] LABS: ALANINE AMINOTRANSFERASE 31 U/L (12-78); ALBUMIN 3.9 g/dL (3.4-5.0); ALKALINE PHOSPHATASE 92 U/L (50-136); ANION GAP 11.7 (8-16); ASPARTATE AMINOTRANSFERASE 28 U/L (15-37); CARBON DIOXIDE 27.6 mmol/L (21-32); CHLORIDE 108 mmol/L (98-107); CREATININE 0.9 mg/dL (0.6-1.3); GFR ARICAN-AMERICAN 86 mL/min (>90); GFR NON ARICAN-AMERICAN 71 mL/min (>90); GLUCOSE 109 mg/dL (74-106); POTASSIUM 3.3 mmol/L (3.5-5.1); SODIUM SERUM 144 mmol/L (136-145); TOTAL BILIRUBIN 0.4 mg/dL (0.0-1.0); UREA NITROGEN, BLOOD 10 mg/dL (7-18)
[2023-09-23 16:12] LABS: APPEARANCE,URINE CLEAR (CLEAR); BILIRUBIN,URINE NEGATIVE (NEGATIVE); BLOOD, URINE NEGATIVE (NEGATIVE); COLOR,URINE YELLOW (YELLOW); LEUKOCYTE ESTERASE ,URINE NEGATIVE (NEGATIVE); NITRITE, URINE NEGATIVE (NEGATIVE); PROTEIN,URINE NEGATIVE (NEGATIVE); UGLUCOSE NEGATIVE (NEGATIVE); UROBILINOGEN,URINE 0.2 EU/dL (0.2 - 1)
[2023-09-23] MEDS ORDERED: KCL 20 MEQ IN 100 mL PREMIX 200 ML IV PRN (18:15)
[2023-09-23] MEDS ORDERED: ACETAMINOPHEN 325 MG TAB PO PRN (18:15)
[2023-09-23] MEDS ORDERED: MAGNESIUM OXIDE 400 MG TAB PO PRN (18:15)
[2023-09-23] MEDS ORDERED: POTASSIUM CHLORIDE 10 MEQ TABER PO PRN (18:15)
[2023-09-23] MEDS ORDERED: KETOROLAC 30 MG/ML VIAL IVP ONE (18:15)
[2023-09-23] MEDS ORDERED: MAG SULF 2000 MG/WATER PREMIX 50 ML IV PRN (18:15)
[2023-09-23] MEDS ORDERED: diphenhydrAMINE 50 MG/ML VIAL IVP ONE (18:15)
[2023-09-23] MEDS ORDERED: PROCHLORPERAZINE 10 MG/2 ML VIAL IVP ONE (18:15)
[2023-09-23 19:45] VITALS: O2SAT 100
[2023-09-23 21:44] VITALS: O2SAT 100
[2023-09-24] VITALS (7 sets, daily range): BP systolic 102–115; BP diastolic 74–87; PULSE 75–105; RESP 18; TEMP 97.5–98.7; O2SAT 96–100
[2023-09-24] MEDS: HYDROcodone/APAP 5/325 MG 1 TAB TAB PO PRN ×2 (02:32→11:47)
[2023-09-24 06:43] LABS: BASOPHILS % (AUTO) 0.3 % (0.0-2.0); EOSINOPHILS % (AUTO) 0.7 % (0.0-4.0); HEMATOCRIT 37.4 % (36-48); HEMOGLOBIN 12.1 g/dL (12.0-16.0); LYMPHOCYTES # (AUTO) 1.5 K/uL (2.5-16.5); LYMPHOCYTES % (AUTO) 32.1 % (20.5-51.1); MEAN CORPUSCULAR HEMOGLOBIN 27 pg (27-31); MEAN CORPUSCULAR HGB CONC 32 g/dL (33-37); MEAN CORPUSCULAR VOLUME 83.1 fL (80-94); MONOCYTES # (AUTO) 0.3 K/uL (0.8-1.0); MONOCYTES % (AUTO) 7.2 % (1.7-9.3); NEUTROPHILS # (AUTO) 2.7 K/uL (1.8-7.7); NEUTROPHILS % (AUTO) 59.7 % (42.2-75.2); PLATELET COUNT (AUTO) 229 K/uL (140-450); RED CELL DISTRIBUTION WIDTH 15.2 % (11.6-13.7); WHITE BLOOD COUNT (AUTO) 4.6 K/uL (4.8-10.8)
[2023-09-24 06:56] LABS: ANION GAP 12.9 (8-16); CALCIUM 8.3 mg/dL (8.5-10.1); CARBON DIOXIDE 25.7 mmol/L (21-32); POTASSIUM 3.6 mmol/L (3.5-5.1)
[2023-09-24 07:09] LABS: MAGNESIUM 2.2 mg/dL (1.8-2.4); PHOSPHORUS 3.6 mg/dL (2.5-4.9)
[2023-09-24] MEDS ORDERED: INSULIN LISPRO SLIDING SCALE 100 UNITS/ML VIAL SUBQ PRN (08:20)
[2023-09-24] MEDS ORDERED: DEXTROSE 50% 50 ML SYR IVP PRN (08:20)
[2023-09-24] MEDS: ASPIRIN 81 MG TAB.CHEW PO SCH (09:45)
[2023-09-24] MEDS: ATORVASTATIN 20 MG TAB PO SCH (09:45)
[2023-09-24] MEDS ORDERED: BLOOD GLUCOSE MONITORING 1 DEV DEV FS SCH (11:30)
[2023-09-24] MEDS: KETOROLAC 30 MG/ML VIAL IVP PRN (18:29)
[2023-09-24] MEDS: oxyCODONE/APAP 5/325 MG 1 TAB TAB PO PRN (21:34)
[2023-09-25] VITALS: BP 114/73; PULSE 77; PULSE 78; PULSE 89; RESP 18; TEMP 97.8; O2SAT 94
[2023-09-25 04:00] VITALS: BP 115/71; PULSE 80; PULSE 89; RESP 18; TEMP 97.9; O2SAT 96
[2023-09-25] MEDS: oxyCODONE/APAP 5/325 MG 1 TAB TAB PO PRN (04:58)
[2023-09-25 06:59] LABS: BASOPHILS % (AUTO) 0.5 % (0.0-2.0); EOSINOPHILS % (AUTO) 0.7 % (0.0-4.0); HEMATOCRIT 35.8 % (36-48); HEMOGLOBIN 11.5 g/dL (12.0-16.0); LYMPHOCYTES # (AUTO) 2.7 K/uL (2.5-16.5); LYMPHOCYTES % (AUTO) 47.5 % (20.5-51.1); MEAN CORPUSCULAR HEMOGLOBIN 27 pg (27-31); MEAN CORPUSCULAR HGB CONC 32 g/dL (33-37); MEAN CORPUSCULAR VOLUME 83.2 fL (80-94); MONOCYTES # (AUTO) 0.4 K/uL (0.8-1.0); MONOCYTES % (AUTO) 7.8 % (1.7-9.3); NEUTROPHILS # (AUTO) 2.5 K/uL (1.8-7.7); NEUTROPHILS % (AUTO) 43.5 % (42.2-75.2); PLATELET COUNT (AUTO) 217 K/uL (140-450); RED BLOOD CELL COUNT(AUTO) 4.31 MIL/uL (4.20-5.40); RED CELL DISTRIBUTION WIDTH 14.9 % (11.6-13.7); WHITE BLOOD COUNT (AUTO) 5.8 K/uL (4.8-10.8)
[2023-09-25 07:04] LABS: ANION GAP 11.3 (8-16); CALCIUM 8.6 mg/dL (8.5-10.1); CARBON DIOXIDE 26.6 mmol/L (21-32); POTASSIUM 3.9 mmol/L (3.5-5.1)
[2023-09-25 08:00] VITALS: BP 103/63; PULSE 76; PULSE 78; RESP 18; TEMP 97.5; O2SAT 96; O2SAT 97
[2023-09-25] MEDS: SENNA 8.6 MG TAB PO SCH ×2 (08:53→20:49)
[2023-09-25] MEDS: ASPIRIN 81 MG TAB.CHEW PO SCH (08:54)
[2023-09-25] MEDS: ATORVASTATIN 20 MG TAB PO SCH (08:54)
[2023-09-25 12:00] VITALS: BP 123/80; PULSE 71; RESP 18; TEMP 97.3; O2SAT 100
[2023-09-25 16:00] VITALS: BP 128/78; PULSE 77; PULSE 82; RESP 18; TEMP 98.1; O2SAT 100
[2023-09-25] MEDS ORDERED: NACL 0.9% 1,000 ML IV ONE (16:05)
[2023-09-25 20:00] VITALS: BP 114/77; PULSE 77; PULSE 80; RESP 18; RESP 19; TEMP 98.4; O2SAT 95; O2SAT 97
[2023-09-26] VITALS: BP 108/59; PULSE 75; PULSE 76; RESP 18; TEMP 98; O2SAT 97
[2023-09-26 04:00] VITALS: BP 119/79; PULSE 78; RESP 16; TEMP 98.6; O2SAT 98
[2023-09-26 06:45] LABS: BASOPHILS % (AUTO) 0.6 % (0.0-2.0); EOSINOPHILS % (AUTO) 0.6 % (0.0-4.0); HEMATOCRIT 36.5 % (36-48); HEMOGLOBIN 11.7 g/dL (12.0-16.0); LYMPHOCYTES # (AUTO) 2.8 K/uL (2.5-16.5); LYMPHOCYTES % (AUTO) 41.2 % (20.5-51.1); MEAN CORPUSCULAR HEMOGLOBIN 26 pg (27-31); MEAN CORPUSCULAR HGB CONC 32 g/dL (33-37); MEAN CORPUSCULAR VOLUME 82.6 fL (80-94); MONOCYTES # (AUTO) 0.3 K/uL (0.8-1.0); MONOCYTES % (AUTO) 5.1 % (1.7-9.3); NEUTROPHILS # (AUTO) 3.5 K/uL (1.8-7.7); NEUTROPHILS % (AUTO) 52.5 % (42.2-75.2); PLATELET COUNT (AUTO) 235 K/uL (140-450); RED BLOOD CELL COUNT(AUTO) 4.42 MIL/uL (4.20-5.40); RED CELL DISTRIBUTION WIDTH 15.3 % (11.6-13.7); WHITE BLOOD COUNT (AUTO) 6.7 K/uL (4.8-10.8)
[2023-09-26 07:00] LABS: ANION GAP 10.1 (8-16); CALCIUM 8.6 mg/dL (8.5-10.1); CARBON DIOXIDE 25.9 mmol/L (21-32); CREATININE 0.8 mg/dL (0.6-1.3)
[2023-09-26 07:09] LABS: PHOSPHORUS 3.5 mg/dL (2.5-4.9)
[2023-09-26 08:00] VITALS: BP 123/76; PULSE 77; PULSE 79; RESP 18; TEMP 98.1; O2SAT 100
[2023-09-26] MEDS: ONDANSETRON 4 MG/2 ML VIAL IVP PRN ×3 (08:27→23:53)
[2023-09-26] MEDS: ASPIRIN 81 MG TAB.CHEW PO SCH (08:30)
[2023-09-26] MEDS: SENNA 8.6 MG TAB PO SCH ×2 (08:30→20:26)
[2023-09-26] MEDS: ATORVASTATIN 20 MG TAB PO SCH (08:30)
[2023-09-26 09:02] VITALS: RESP 18; O2SAT 100
[2023-09-26] MEDS ORDERED: LORazepam 2 MG/ML VIAL ONE (11:27)
[2023-09-26] MEDS: oxyCODONE/APAP 5/325 MG 1 TAB TAB PO PRN ×2 (14:19→20:26)
[2023-09-26 16:00] VITALS: BP 120/71; PULSE 101; RESP 18; TEMP 97.8; O2SAT 98
[2023-09-26] MEDS ORDERED: KETOROLAC 30 MG/ML VIAL IVP SCH (16:51)
[2023-09-26] MEDS ORDERED: diphenhydrAMINE 50 MG/ML VIAL IVP SCH (16:51)
[2023-09-26 20:00] VITALS: BP 137/87; PULSE 101; PULSE 103; RESP 18; TEMP 97.8; O2SAT 98
[2023-09-27 04:00] VITALS: BP 115/70; PULSE 102; RESP 16; TEMP 97.9; O2SAT 98
[2023-09-27 06:45] LABS: BASOPHILS % (AUTO) 0.3 % (0.0-2.0); EOSINOPHILS % (AUTO) 0.5 % (0.0-4.0); HEMOGLOBIN 11.7 g/dL (12.0-16.0); LYMPHOCYTES % (AUTO) 22.6 % (20.5-51.1); MEAN CORPUSCULAR HEMOGLOBIN 27 pg (27-31); MEAN CORPUSCULAR HGB CONC 33 g/dL (33-37); MEAN CORPUSCULAR VOLUME 82.9 fL (80-94); MONOCYTES # (AUTO) 0.5 K/uL (0.8-1.0); MONOCYTES % (AUTO) 5.9 % (1.7-9.3); NEUTROPHILS # (AUTO) 6.3 K/uL (1.8-7.7); NEUTROPHILS % (AUTO) 70.7 % (42.2-75.2); PLATELET COUNT (AUTO) 223 K/uL (140-450); RED BLOOD CELL COUNT(AUTO) 4.34 MIL/uL (4.20-5.40); RED CELL DISTRIBUTION WIDTH 15.3 % (11.6-13.7); WHITE BLOOD COUNT (AUTO) 8.9 K/uL (4.8-10.8)
[2023-09-27 07:02] LABS: ANION GAP 12.6 (8-16); CALCIUM 8.7 mg/dL (8.5-10.1); CARBON DIOXIDE 26.1 mmol/L (21-32); POTASSIUM 3.7 mmol/L (3.5-5.1)
[2023-09-27 07:16] LABS: PHOSPHORUS 4.7 mg/dL (2.5-4.9)
[2023-09-27 08:00] VITALS: PULSE 60; RESP 19; O2SAT 97
[2023-09-27] MEDS: LORazepam 2 MG/ML VIAL IVP PRN ×2 (08:06→17:48)
[2023-09-27] MEDS: SENNA 8.6 MG TAB PO SCH ×2 (09:06→21:06)
[2023-09-27] MEDS: ASPIRIN 81 MG TAB.CHEW PO SCH (09:06)
[2023-09-27] MEDS: KETOROLAC 30 MG/ML VIAL IVP PRN (09:07)
[2023-09-27] MEDS: ATORVASTATIN 20 MG TAB PO SCH (09:07)
[2023-09-27] MEDS ORDERED: PRED20TA5 PO (15:47)
[2023-09-27] MEDS ORDERED: predniSONE 20 MG TAB PO SCH (16:00)
[2023-09-27] MEDS: ONDANSETRON 4 MG/2 ML VIAL IVP PRN (16:09)
[2023-09-27 18:05] VITALS: BP 132/70; PULSE 69; RESP 18; TEMP 96.9; O2SAT 97
[2023-09-27 20:00] VITALS: BP 119/89; PULSE 107; RESP 18; RESP 19; TEMP 97.9; O2SAT 96; O2SAT 97
[2023-09-28] MEDS: LORazepam 2 MG/ML VIAL IVP PRN ×3 (02:24→16:38)
[2023-09-28 04:00] VITALS: BP 130/82; PULSE 105; RESP 19; TEMP 97.9; O2SAT 98
[2023-09-28 08:00] VITALS: BP 142/84; PULSE 111; RESP 18; TEMP 98; O2SAT 96
[2023-09-28 08:23] LABS: BASOPHILS # (AUTO) 0.1 K/uL (0.00-0.22); BASOPHILS % (AUTO) 0.5 % (0.0-2.0); EOSINOPHILS % (AUTO) 0.1 % (0.0-4.0); HEMATOCRIT 38.4 % (36-48); HEMOGLOBIN 12.3 g/dL (12.0-16.0); LYMPHOCYTES # (AUTO) 1.5 K/uL (2.5-16.5); LYMPHOCYTES % (AUTO) 12.9 % (20.5-51.1); MEAN CORPUSCULAR HEMOGLOBIN 26 pg (27-31); MEAN CORPUSCULAR HGB CONC 32 g/dL (33-37); MEAN CORPUSCULAR VOLUME 82.4 fL (80-94); MONOCYTES # (AUTO) 0.2 K/uL (0.8-1.0); MONOCYTES % (AUTO) 1.8 % (1.7-9.3); NEUTROPHILS # (AUTO) 9.9 K/uL (1.8-7.7); NEUTROPHILS % (AUTO) 84.7 % (42.2-75.2); PLATELET COUNT (AUTO) 247 K/uL (140-450); RED BLOOD CELL COUNT(AUTO) 4.66 MIL/uL (4.20-5.40); RED CELL DISTRIBUTION WIDTH 15.1 % (11.6-13.7); WHITE BLOOD COUNT (AUTO) 11.7 K/uL (4.8-10.8)
[2023-09-28 08:32] LABS: ANION GAP 15.6 (8-16); CALCIUM 8.9 mg/dL (8.5-10.1); CARBON DIOXIDE 24.5 mmol/L (21-32); CREATININE 1.1 mg/dL (0.6-1.3); POTASSIUM 4.1 mmol/L (3.5-5.1)
[2023-09-28 08:35] LABS: MAGNESIUM 1.7 mg/dL (1.8-2.4); PHOSPHORUS 3.2 mg/dL (2.5-4.9)
[2023-09-28 08:36] VITALS: PULSE 102; RESP 20; O2SAT 99
[2023-09-28] MEDS: SENNA 8.6 MG TAB PO SCH ×2 (10:20→20:36)
[2023-09-28] MEDS: ASPIRIN 81 MG TAB.CHEW PO SCH (10:20)
[2023-09-28] MEDS: ATORVASTATIN 20 MG TAB PO SCH (10:21)
[2023-09-28] MEDS: oxyCODONE/APAP 5/325 MG 1 TAB TAB PO PRN ×2 (14:06→20:36)
[2023-09-28 16:00] VITALS: BP 131/65; PULSE 120; RESP 18; TEMP 97.8; O2SAT 99
[2023-09-28 20:00] VITALS: BP 116/78; PULSE 105; RESP 18; TEMP 97.5; O2SAT 95
[2023-09-29 04:00] VITALS: BP 97/60; PULSE 100; RESP 18; TEMP 96.9; O2SAT 97
[2023-09-29] MEDS: oxyCODONE/APAP 5/325 MG 1 TAB TAB PO PRN ×2 (07:37→14:45)
[2023-09-29 08:00] VITALS: BP 111/64; PULSE 101; RESP 18; TEMP 96.1; O2SAT 99
[2023-09-29 08:23] VITALS: PULSE 101; RESP 18; O2SAT 99
[2023-09-29] MEDS: ASPIRIN 81 MG TAB.CHEW PO SCH (09:23)
[2023-09-29] MEDS: ATORVASTATIN 20 MG TAB PO SCH (09:23)
[2023-09-29] MEDS: SENNA 8.6 MG TAB PO SCH ×2 (09:23→20:52)
[2023-09-29 12:44] LABS: BASOPHILS % (AUTO) 0.4 % (0.0-2.0); EOSINOPHILS # (AUTO) 0.1 K/uL (0-0.4); EOSINOPHILS % (AUTO) 0.6 % (0.0-4.0); HEMATOCRIT 35.3 % (36-48); HEMOGLOBIN 11.3 g/dL (12.0-16.0); LYMPHOCYTES # (AUTO) 4.6 K/uL (2.5-16.5); LYMPHOCYTES % (AUTO) 44.6 % (20.5-51.1); MEAN CORPUSCULAR HEMOGLOBIN 27 pg (27-31); MEAN CORPUSCULAR HGB CONC 32 g/dL (33-37); MEAN CORPUSCULAR VOLUME 83.7 fL (80-94); MONOCYTES # (AUTO) 0.5 K/uL (0.8-1.0); MONOCYTES % (AUTO) 5.1 % (1.7-9.3); NEUTROPHILS # (AUTO) 5.1 K/uL (1.8-7.7); NEUTROPHILS % (AUTO) 49.3 % (42.2-75.2); PLATELET COUNT (AUTO) 235 K/uL (140-450); RED BLOOD CELL COUNT(AUTO) 4.22 MIL/uL (4.20-5.40); RED CELL DISTRIBUTION WIDTH 15.7 % (11.6-13.7); WHITE BLOOD COUNT (AUTO) 10.4 K/uL (4.8-10.8)
[2023-09-29 12:56] LABS: ALBUMIN 3.4 g/dL (3.4-5.0); CALCIUM 8.9 mg/dL (8.5-10.1); CREATININE 1.1 mg/dL (0.6-1.3); TOTAL BILIRUBIN 0.2 mg/dL (0.0-1.0); TOTAL PROTEIN, SERUM 7.2 g/dL (6.4-8.2)
[2023-09-29 16:00] VITALS: BP 106/68; PULSE 99; RESP 18; TEMP 97.9; O2SAT 98
[2023-09-29 20:00] VITALS: PULSE 105; RESP 18; TEMP 97.8; O2SAT 94
[2023-09-30] VITALS: BP 122/77; PULSE 105; RESP 18; TEMP 97.8; O2SAT 94
[2023-09-30 08:00] VITALS: BP 101/60; PULSE 93; RESP 18; TEMP 96.6; O2SAT 100
[2023-09-30 09:13] VITALS: PULSE 93; RESP 18; O2SAT 100
[2023-09-30] MEDS: ATORVASTATIN 20 MG TAB PO SCH (09:43)
[2023-09-30] MEDS: SENNA 8.6 MG TAB PO SCH (09:44)
[2023-09-30] MEDS: ASPIRIN 81 MG TAB.CHEW PO SCH (09:44)
[2023-09-30 14:49] VITALS: O2SAT 100
== END 2023-09-30 16:00 | DRG 54 ==
LOC: MED 13:51 → MTU 18:14 → OBSVTOIN 18:16 → MTU 18:16
PROVIDERS: ADMIT Hospitalist; ATTEND Hospitalist
DX: G43.909 Migraine, unspecified, not intractable, without status migrainosus (principal); E78.5 Hyperlipidemia, unspecified; R73.03 Prediabetes; Z79.899 Other long term (current) drug therapy; Z88.8 Allergy status to other drugs, medicaments and biological substances; Z85.3 Personal history of malignant neoplasm of breast
CPT/HCPCS: 36415; 70450; 71045; 80048; 80053; 81003; 82948; 83735; 84100; 84484; 85025; 85610; 85651; 85730; 86038; 86886; 86900; 86901; 87081; 93005; 97112; 97116; 97163-GP; 97530; J0780; J1200; J1644; J1815; J1885; J2060; J2405; J7512; Q0163; Q9967